=== PATIENT | male | born 1940 | race Caucasian/White ===

== ENCOUNTER 2020-10-21 21:32 | Emergency (ER) | payer OTHER, MEDICARE ==
[2020-10-21] MEDS ORDERED: CYCLOBENZAPRINE10 MG PO (23:06)
== END 2020-10-21 23:22 | disposition home or self-care (01) ==
LOC: FER 21:32
DX: S50.312A Abrasion of left elbow, initial encounter (principal); R53.1 Weakness; R51.9 Headache, unspecified; M25.512 Pain in left shoulder; M25.511 Pain in right shoulder; E11.9 Type 2 diabetes mellitus without complications; I10 Essential (primary) hypertension; V43.52XA Car driver injured in collision with other type car in traffic accident, initial encounter; Y92.410 Unspecified street and highway as the place of occurrence of the external cause
CPT/HCPCS: 70450; 72125; 73030

== ENCOUNTER 2021-07-14 09:02 | Day surgery (SDC) | payer MEDICARE ==
[~2021-07-14] VITALS: Ht 178 cm; Wt 84.0 kg
[~2021-07-14 09:02] MED LIST: AMARYL4 MG PO; ASPIRIN EC81 MG PO; ATORVASTATIN CA40 MG PO; COZAAR100 MG PO; CYCLOBENZAPRINE10 MG PO; METFORMIN HCL500 MG PO; NORVASC5 MG PO; [UNRECOGNIZED DRUG - OTHER] EARRT
[2021-07-15 05:41] LABS: BASOPHIL 0.1 % (0-2); EOSINOPHIL 0.1 % (0-7); HCT 38.9 % (42.0-52.0); LYMPHOCYTE 11.4 % (15-48); MCH 29.2 pg (25.0-31.0); MCHC 33.4 g/dL (32.0-36.0); MCV 87.4 fL (78.0-100.0); MONOCYTE 7.6 % (0-12); MPV 9.8 fL (6.0-9.5); NEUTROPHIL 80.5 % (41-80); NRBC 0; PLT 184 K/uL (150-400); RBC 4.45 M/uL (4.70-6.00); RDW 12.9 % (11.5-14.0); WBC 14.3 K/uL (4.0-10.5)
[2021-07-15 06:00] LABS: BUN/CREAT RATIO (CALC) 22.2 RATIO; CREATININE 0.72 mg/dL (0.67-1.17); POTASSIUM 4.4 mmol/L (3.5-5.1)
[2021-07-15] MEDS ORDERED: ASPIRIN325 MG PO (08:49)
[2021-07-15] MEDS ORDERED: FEOSOL325 MG PO (08:49)
[2021-07-15] MEDS ORDERED: OXYCODONE-ACET1 EAC1 PO (08:49)
--- NOTE | 2021-07-15 10:23 | NUR ---
PT. HAD RRTSR ON 07/14/21. HE WILL D/C HOME ON 07/15/21 WITH NO NEEDS.
--- NOTE | 2021-07-15 10:24 | NUR ---
PT. HAD A RTKR ON 07/14/21. PT. WILL D/C HOME WITH SPOUSE ON 07/15/21. PT. HAS A RW. PT. REQUESTED KORT TO HOME. TC TO [facility] IN [place] [phone] PT. GILLIAN COPAY IS $42.10. ADVISED PT AND MILEY ROSALES.
== END 2021-07-15 11:45 | disposition home or self-care (01) ==
LOC: FAS 09:02 → FOFB 09:02 → FAS 12:00 → FOFB 14:16 → FAS 07-15 11:45
PROVIDERS: Legal Medicine
DX: M19.011 Primary osteoarthritis, right shoulder (principal); M75.101 Unspecified rotator cuff tear or rupture of right shoulder, not specified as traumatic; G89.18 Other acute postprocedural pain; E11.9 Type 2 diabetes mellitus without complications; I10 Essential (primary) hypertension; E78.5 Hyperlipidemia, unspecified; Z79.82 Long term (current) use of aspirin; Z79.84 Long term (current) use of oral hypoglycemic drugs
CPT/HCPCS: 36415; 73020; 80048; 85025; 86850; 86900; 86901; 94010; 97162; 97165; 97530; 97530-GP; C1713; C1776; J0171; J0697; J1100; J1170; J1885; J2250; J2270; J2370; J2405; J2704; J2795; J3010; J7120

== ENCOUNTER → 2022-01-05 | Day surgery (SDC) | payer MEDICARE ==
[~2022-01-05] VITALS: Ht 177.8 cm; Wt 84.1 kg
[~2022-01-05] MED LIST changes: +ASPIRIN325 MG PO; +FEOSOL325 MG PO; +OXYCODONE-ACET1 EAC1 PO
[2022-01-05 06:49] LABS: MCH 27.6 pg (25.0-31.0); MCHC 33.3 g/dL (32.0-36.0); MCV 82.7 fL (78.0-100.0); RBC 5.08 M/uL (4.70-6.00); RDW 13.4 % (11.5-14.0); WBC 9.1 K/uL (4.0-10.5)
[2022-01-05 07:05] LABS: BUN/CREAT RATIO (CALC) 20.2 RATIO; CREATININE 0.84 mg/dL (0.67-1.17)
== END | disposition home or self-care (01) ==
LOC: FAS 05:44
PROVIDERS: Anesthesiology; Legal Medicine
DX: G56.21 Lesion of ulnar nerve, right upper limb (principal); I10 Essential (primary) hypertension; E11.9 Type 2 diabetes mellitus without complications; E78.5 Hyperlipidemia, unspecified; Z79.82 Long term (current) use of aspirin; Z79.84 Long term (current) use of oral hypoglycemic drugs; Z79.899 Other long term (current) drug therapy
CPT/HCPCS: 36415; 80048; J0690; J2250; J2405; J2704; J2795; J3010; J7120